=== PATIENT | female | born 1970 | race Caucasian/White ===

== ENCOUNTER → 2018-05-03 14:25 | Outpatient (CLI) | payer OTHER, SELFPAY ==
[2018-05-03 18:22] LABS: Hematocrit 37.9 % (37-47); Hemoglobin 12.8 g/dl (12.0-15.0); Mean Corp Hgb Conc 33.8 g/gl (32-36); Mean Platelet Vol. 11.9 fl (6.2-12.0); Platelet Count 343 K/mm3 (150-450); RBC Distribution Width CV 14.6 % (11.6-14.6); RBC Distribution Width SD 47.2 fl (35.1-43.9); Red Blood Count 4.26 M/mm3 (4.2-5.4); White Blood Count 6.9 K/mm3 (4.4-11.0)
[2018-05-03 18:32] LABS: Scan Indicated on CBC? Y/N NO
[2018-05-03 19:02] LABS: Follicle Stimulating Hormone 6.1 mIU/mL; Thyroid Stim Hormone (TSH) 1.57 uIU/mL (0.358-3.74)
== END ==
PROVIDERS: Visit Provider Obstetrics & Gynecology
DX: N92.6 Irregular menstruation, unspecified (principal); N93.9 Abnormal uterine and vaginal bleeding, unspecified
CPT/HCPCS: 36415; 83001; 84443; 85027

== ENCOUNTER → 2019-03-02 08:55 | Outpatient (CLI) | payer OTHER, SELFPAY ==
[2019-03-02] VITALS (7 sets, daily range): BP systolic 108–129; BP diastolic 65–80; PULSE 65–81; RESP 16–18; TEMP 36.4–36.9; O2SAT 97–100; BMI 27.6
== END ==
PROVIDERS: Family Provider Family Medicine; PCP Family Medicine; Referring Provider Family Medicine; Visit Provider Family Medicine
DX: D64.9 Anemia, unspecified (principal); R06.09 Other forms of dyspnea
CPT/HCPCS: 36430; 86850; 86900; 86920; 86922; J7040; P9016; A4216

== ENCOUNTER 2019-03-28 10:51 | Day surgery (SDC) | payer OTHER, SELFPAY ==
[2019-03-02 09:00] VITALS: BMI 27.6
--- NOTE | 2019-03-24 08:03 | HP.PCM_ITS ---
History and Physical Date of Admission: 03/28/19 HISTORY OF PRESENT ILLNESS: On 03/23/2019, Bella Chance, a 48 year old female 1 1 0 1 4, presented for: Preop hysteroscopy, D and C, and Naomie endometrial ablation planned to treat heavy periods. She has had prior BTO. Has tried hormonal contraception inc luding a Mirena IUD (removed Apr 2018) Prior ultrasound: Uterus retroflexed and measures 9.8 x 7.2 x 5.3 cm. No fibroids noted. Declines further trial of medical management in favor of hysteroscopy, D and C, and Naomie endometrial ablation. EB ALLERGIES: NKA MEDICATIONS HISTORY: Patient is also takin. Lipitor 20 mg tablet REVIEW OF SYSTEMS: GENERAL - Denies fever, or chills SKIN - Denies skin changes EYES - wears eye glasses EARS - Denies difficulty hearing NOSE - Denies nasal congestion or bleeding MOUTH - Denies sore throat or difficulty swallowing NECK - Denies pain or swelling RESPIRATORY - Denies shortness of breath or wheezing CARDIOVASCULAR - Denies palpitations or chest pain GASTROINTESTINAL - Denies nausea, vomiting, diarrhea, constipation, abdominal pain, melena, or bright red blood GENITOURINARY - heavy menses MUSCULOSKELETAL - Denies joint or muscle pain NEUROLOGICAL - Denies localized numbness or weakness PSYCHIATRIC - Denies depression or anxiety ENDOCRINE - Denies heat or cold intolerance, weight loss or gain HEMATO-IMMUNOLOGIC - Denies excessive bleeding with cuts PAST HISTORY: Breast/Ovarian/Colon Cancers - Denies Infections - HPV, 1990 and Chicken pox Illnesses - no serious past illnesses Accidents - no injuries of consequence History of Abnormal PAPS - first noted 1-2 years ago -- YES Hospitalizations - Childbirth SURGICAL HISTORY: 1. 03/15/2004 Repeat c section, [address] Beatriz caban, [facility]. (two boys, one girl) 2. 12/17/2005 abdominoplasty repair work from 3. 03/15/2004 Tubal ligation 4. 08/01/2000 Sylvia Bose M.D. Failure to progress MENSTRUAL HISTORY: LMP Known?- DefiniteAmount/Duration - 7 days, Regularity - heavy, Frequency - monthly days, LMP - 04/09/18, Age Onset Menarche - 12 PAST PREGNANCIES: Total Pregnancies - 2; Full Term Pregnancies - 1; Premature - 1; Abortions, Induced - 0; Abortions, Spontaneous - 0; Ectopics - 0; Multiple Births - 1; Living Children - 4 FAMILY HISTORY: Mother - High Cholesterol; Mother - FH: Hypothyroidism; SOCIAL HISTORY: Alcohol Use - RARELY Smoking - denies smoking Diet - balanced Diet Lifestyle - high stress lifestyle Exercise - active and walking Seat Belt Use - always Employer - [employer] Job Description - [employer] Illicit Drug Use - None Sexual Activity - Hours Worked - 40 hours per week Spouse-Sig Other Name - Marcial Chance Spouse-Sig Other Occupation - [employer] Children Name(s) - Rachael '01, Triplets '04 Roge, Michael, and Jcarlos Control - Prior Tubal PHYSICAL EXAMINATION CONSTITUTIONAL - NAD, well nourished, and well developed HEENT - Normocephalic, PERRLA, EOMI NECK - no nuchal rigidity EXTREMITIES - No edema or calf tenderness NEUROLOGICAL - Cranial nerves II-XII grossly intact PSYCHIATRIC - A and O to time, place, person, mood and affect ASSESSMENT: 1. Excessive Bleeding In The Premenopausal Period PLAN BY DIAGNOSIS: 1. Excessive Bleeding In The Premenopausal Period and Other Specified Irregular Menstruation Mirena IUD in place. 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 Continued irregular bleeding. TSH, FSH, CBC wnl. IUD removed Apr 2018 Continues with heavy periods. Declines hormonal contraception. Prior tubal ligation. Ultrasound showed no fibroids. Prefers to proceed with endometrial ablation Denis Sutherland of endometrial ablation reviewed. All questions answered to her satisfaction and consent signed. Plan for hysteroscopy, D and C, Naomie endometrial ablation as scheduled. RTO in 2 wk for postop follow up appointment.
[2019-03-28] VITALS (8 sets, daily range): BP systolic 75–110; BP diastolic 50–65; PULSE 65–81; RESP 16–17; TEMP 36.4–36.5; O2SAT 95–98; BMI 27.6
[2019-03-28 11:19] LABS: Hematocrit 34.9 % (37-47); Mean Corp Hgb Conc 31.5 g/dL (32-36); Mean Corpuscular Hgb 25.3 pg (27.0-32.0); Mean Corpuscular Volume 80.4 fL (81-99); Mean Platelet Vol. 10.9 fl (6.2-12.0); POSITIVE MORPHOLOGY YES; Platelet Count 312 K/mm3 (150-450); RBC Distribution Width CV 21.3 % (11.6-14.6); RBC Distribution Width SD 61.3 fl (35.1-43.9); Red Blood Count 4.34 M/mm3 (4.2-5.4)
[2019-03-28 11:23] LABS: Scan Indicated on CBC? Y/N YES- FLAGS NOTED
[2019-03-28] MEDS: Lactated Ringers 1,000 ML 150 ML IV ×2 (11:28→13:34)
--- NOTE | 2019-03-28 12:23 | DCINST_ITS ---
Discharge Diet: No Restrictions Discharge Activity: May not drive while taking narcotic pain medications., May Shower, May Take a Tub Bath May resume sexual activity in: 1 week Call your doctor if you observe: Fever of 101 or Higher, Using more than one pad per hour, Uncontrolled pain Additional Instructions: Take Percocet for more severe pain as needed. You may add TWO IBUPROFEN (200 mg each) OR Two Aleve every 8 hr as needed for pain. Resume all usual activity as tolerated on 03/29/19 Allergies/Adverse Reactions: Allergies No Known Allergies Allergy (Verified 03/02/19 09:03) Medications to take at Discharge Atorvastatin Calcium [Lipitor] 10 mg PO QHS 03/02/19 Oxycodone HCl/Acetaminophen [Percocet 5-325] 1 - 2 tablet PO Q4H PRN PRN 2 Days #6 tablet 03/28/19 The following prescriptions were given: Oxycodone HCl/Acetaminophen [Percocet 5-325] 1 - 2 tablet PO Q4H PRN PRN 2 Days #6 tablet PRN Reason: Moderate Pain Transmission Status: Sent to [id number] Primary Care Physician: Solis Castellon MD [Primary Care Provider] - Test Results: Test results from this visit will be discussed in further detail at your follow- up appointment, if applicable. Please Follow Up With: Sylvia Bose MD - [phone] When: in 2 wk for postop appointment Proposed Discharge Date: 03/28/19
--- NOTE | 2019-03-28 12:30 | EMB_PTH ---
PATIENT: LOPEZ ASHFORD LOC: [facility] [place] U#:[id number] AGE/SX: 48/F ROOM: RE03/28/[address]: Dr. Sylvia Bose MD : 1970 BED: DIS: 03/28/2019 SPEC #: [id number] RECD: 03/28/19 14:27 STATUS: BLACK KARYN #: [id number] AGUILAR: 03/28/19 12:[address]: Sylvia Bose DEPT: SURGICAL PATHOLOGY RECD BY: Maureen Cerna ENTERED: 03/28/19 14:54 SP TYPE: ENDOM BX/C OTHR DR: Dr. Solis Castellon MD Tissues: Endometrium, NOS Procedures: Surgery Specimen Level IV HEADER OPERATION: Hysteroscopy, D & C, Naomie PRE-OP DIAGNOSIS: Excessive bleeding in the premenopausal period and other specified irregular menstruation TISSUE SUBMITTED: Endometrial curettings MICROSCOPIC DIAGNOSIS Endometrial curettings: Dyssynchronous endometrium consisting of proliferative and early secretory endometrium with extensive glandular and stromal breakdown. WILLIAM:juanito 03/29/19 MICROSCOPIC DESCRIPTION Slides are reviewed. GROSS DESCRIPTION Received in fixative is one container labeled with the patient's name and designated endometrial curettings. The specimen consists of multiple fragments of hemorrhagic soft tissue that in aggregate measure 5 x 3 x 0.3 cm. The entire specimen is submitted in two cassettes. / WILLIAM:juanito 03/28/19 TC:5 CPT: 58414
[2019-03-28] MEDS: Lubricating Jelly 60 GM Tube 30 GM TOPICAL (13:00)
--- NOTE | 2019-03-28 13:06 | PCM.OPRPT ---
Report of Operation Date of Procedure: 03/28/19 Pre-Operative Diagnosis: excessive bleeding in premenopause Surgery/Procedure Performed:: same Description of Surgical Findings:: Parous appearing cervical os, no lesions. The Uterus sounds to 12.5 cm with endocervical length of 4.5 cm. Active bleeding was noted. Neither tubal ostia was visualized at hysteroscopy. Lush appearing endometrium noted with bleeding. Type of Anesthesia:: Local MAC Specimen's removed: uterine curettings Drains: karen amaral Estimated Blood Loss (mL): 20 Fluids Replaced: LR Description of Procedure: Findings: lush appearing endometrium, bleeding Neither tubal ostia visualized . After the risks, benefits, alternatives of the procedure were reviewed with the patient, informed consent was obtained. The patient was taken to the operating room with an IV running and placed in dorsal supine position on the operating table. She was given MAC IV sedation and repositioned to the dorsal lithotomy position and prepped and draped in the usual sterile fashion. A Graves speculum was placed into the vagina and the cervix was brought into view. Cervix was instilled with 10 cc of 1% lidocaine with epinephrine as a paracervical block using a 20-gauge spinal needle in the 2:00 4:00 8:00 and 10:00 positions. A single-tooth tenaculum was applied to the anterior lip of the cervix. The cervix was sequentially dilated to allow admission of the hysteroscope. The hysteroscopy was performed with the findings noted above. A sharp curettage was then performed and pieces of tissue were were withdrawn and set aside for later pathology review. There was good crei in all quadrants. The Charlotte endometrial ablation device was then placed into the uterus with cavity length set at maximum, 6.5 cm (pt cavity length 8 cm) The CO2 test was passed and the treatment cycle was initiated and successfully completed. The Charlotte device was removed and set aside. This point the procedure was terminated the single-toothed tenaculum was removed from the anterior lip of the cervix and a Ray-Nehemias guaze was used to remove any remaining tissue and blood from the upper vagina and cervix. Excellent hemostasis was noted. The speculum was removed. The patient was returned to dorsal supine position and awakened from IV sedation and then transferred to her recovery room bed in stable condition after tolerating the procedure well. Sponge, lap, needle, and instrument counts were correct x2. Medications given intraoperatively included 10 cc of 1% lidocaine with epinephrine instilled as a paracervical block. For complete listing the medications given intraoperatively, see the anesthesia record. - Complications None - Admit VTE Documentation VTE Present on Admission: No VTE Mechan Device Prophylaxis: SCD's
== END 2019-03-28 14:40 | disposition home or self-care (01) ==
LOC: SDC 10:55 → AC 10:55
PROVIDERS: Family Provider Family Medicine; PCP Family Medicine; Referring Provider Obstetrics & Gynecology; Visit Provider Obstetrics & Gynecology
PROC: 0U5B8ZZ Destruction of Endometrium, Via Natural or Artificial Opening Endoscopic (ICD-10-PCS; CPT 58558; principal; 2019-03-28 12:15)
DX: N92.4 Excessive bleeding in the premenopausal period (principal); E78.00 Pure hypercholesterolemia, unspecified; Z79.899 Other long term (current) drug therapy; Z98.51 Tubal ligation status; Z86.2 Personal history of diseases of the blood and blood-forming organs and certain disorders involving the immune mechanism
CPT/HCPCS: 00952; 58563; 36415; 85027; 88305; J7120; J2405

== ENCOUNTER → 2022-09-07 | Outpatient (CLI) | payer OTHER, SELFPAY ==
[2022-09-07 13:40] LABS: Absolute Lymphocyte Count 1.46 X10^3/uL (0.83-4.51); Absolute Neutrophil Count 7.8 X10^3/uL (2.0-7.7); Basophil# 0.04 X10^3/uL; Basophil% 0.4 % (0-1); Eosinophil# 0.08 X10^3/uL; Eosinophils% 0.8 % (0-5); Hematocrit 31.2 % (37-47); Hemoglobin 10.2 g/dL (12.0-15.0); Lymphocyte # 1.46 X10^3/ul (0.83-4.51); Lymphocyte % 14.7 % (19-41); Mean Corp Hgb Conc 32.7 g/dL (32-36); Mean Corpuscular Hgb 29.4 pg (27.0-32.0); Mean Corpuscular Volume 89.9 fL (81-99); Mean Platelet Vol. 10.9 fl (6.2-12.0); NRBC Flagged by Analyzer 0 % (0-5); Neutrophil # 7.84 X10^3/uL (2.7-7.7); Neutrophil % 78.8 % (47-70); Platelet Count 369 K/mm3 (150-450); RBC Distribution Width CV 13.4 % (11.6-14.6); RBC Distribution Width SD 43.8 fl (35.1-43.9); Red Blood Count 3.47 M/mm3 (4.2-5.4)
[2022-09-07 14:24] LABS: Estradiol 12.6 pg/mL; Follicle Stimulating Hormone 12.6 mIU/mL; Luteinizing Hormone 3.7 mIU/mL; Thyroid Stim Hormone (TSH) 2.39 uIU/mL (0.358-3.74)
== END | disposition home or self-care (01) ==
PROVIDERS: PCP Family Medicine; Visit Provider Obstetrics & Gynecology
DX: N93.9 Abnormal uterine and vaginal bleeding, unspecified (principal)
CPT/HCPCS: 36415; 82670; 83001; 83002; 84439; 84443; 85025

== ENCOUNTER → 2022-10-07 | Outpatient (CLI) | payer OTHER, SELFPAY ==
--- NOTE | 2022-10-07 | EMB_PTH ---
PATIENT: LOPEZ ASHFORD LOC: [facility] U#:[id number] AGE/SX: 52/F ROOM: RE10/07/[address]: Dr. Yong Blakely MD : 1970 BED: DIS: 10/07/2022 SPEC #: [id number] RECD: 10/07/22 13:35 STATUS: BLACK REZohra #: [id number] AGUILAR: 10/07/22 00:[address]: Yong Blakely DEPT: SURGICAL PATHOLOGY RECD BY: Kailey Nicolas ENTERED: 10/08/22 07:37 SP TYPE: ENDOM BX/C BACILIO DR: Dr. Solis Castellon MD Tissues: Endometrium, NOS Procedures: Surgery Specimen Level IV HEADER OPERATION: Endometrial biopsy PRE-OP DIAGNOSIS: Abnormal uterine bleeding N93.9 TISSUE SUBMITTED: Endometrial biopsy MICROSCOPIC DIAGNOSIS Endometrial biopsy: Scant strips of benign endometrial epithelium, insufficient for further evaluation. Scant fragments of benign endocervical epithelium and mucous. See comment. SJ:juanito 10/11/2022 COMMENT The specimen predominantly consists of mucoid tissue. Clinical correlation and appropriate follow up are necessary. MICROSCOPIC DESCRIPTION Slides are reviewed. GROSS DESCRIPTION Received in fixative is one container labeled with the patient's name and designated endometrial biopsy. The specimen consists of multiple fragments of hemorrhagic mucoid tissue that in aggregate measure 3.0 x 2.5 x 0.3 cm. The specimen is totally submitted in one cassette. / WILLIAM:juanito 10/08/2022 TC: Cannot code CPT: 83677
== END | disposition home or self-care (01) ==
LOC: LABSPEC 13:17
PROVIDERS: PCP Family Medicine; Visit Provider Obstetrics & Gynecology
DX: N93.9 Abnormal uterine and vaginal bleeding, unspecified (principal)
CPT/HCPCS: 88305

== ENCOUNTER → 2024-10-10 | Outpatient (CLI) | payer BC, SELFPAY ==
--- NOTE | 2024-10-10 09:15 | CYST_PTH ---
PATIENT: LOPEZ ASHFORD LOC: [facility] U#:[id number] AGE/SX: 54/F ROOM: RE10/10/[address]: Dr. Medardo Flores DO : 1970 BED: DIS: 10/10/2024 SPEC #: [id number] RECD: 10/11/24 10:22 STATUS: BLACK REZohra #: [id number] AGUILAR: 10/10/24 09:[address]: Medardo Flores DEPT: SURGICAL PATHOLOGY RECD BY: Brian Murrieta ENTERED: 10/11/24 10:23 SP TYPE: Cyst OTHR DR: Dr. Solis Castellon MD Tissues: A - Finger, NOS Procedures: Immunohistochemical Stains Surgery Specimen Level V IHC Stain ADDITIONAL HEADER OPERATION: Left index finger, dip ganglion cyst removal PRE-OP DIAGNOSIS: Left index finger ganglion cyst TISSUE SUBMITTED: A- Left index finger mass MICROSCOPIC DIAGNOSIS A. 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 Note: IHCs were performed. Vimentin and CD68 are positive. SMA highlights blood vessels. Pancytokeratin, Desmin, and Melan-A are negative. Hese findings support the diagnosis. MICROSCOPIC DESCRIPTION Slides are reviewed. These tests were developed and their performance characteristics determined by [facility]. They may not have been cleared or approved by the U.S. Food and Drug Administration. The FDA has determined that such clearance or approval is not necessary. The above immunohistochemical/dualISH markers are ordered and reviewed by the Pathologist. GROSS DESCRIPTION A. Received in fixative is one container labeled with the patient's name and designated Left index finger mass. The specimen consists of a fragment of firm soft tissue measuring 0.7 x 0.7 x 0.3cm. Sections are submitted in one cassette. 10/11/2024 CPT:[id number]
== END | disposition home or self-care (01) ==
PROVIDERS: PCP Family Medicine; Referring Provider Student in an Organized Health Care Education/Training Program; Visit Provider Student in an Organized Health Care Education/Training Program
DX: M67.48 Ganglion, other site (principal)
CPT/HCPCS: 88304; 88341; 88342